=== PATIENT | male | born 1965 | race Caucasian/White ===

== ENCOUNTER 2016-05-18 03:15 | Emergency (ER) | payer MEDICAID ==
[2015-06-30 11:54] VITALS: BMI 32.8
[~2016-05-18 03:15] MED LIST: BACTRIM DS TABL1 TAB PO; GLUCOPHAGE500 MG PO
== END 2016-05-18 04:04 | disposition home or self-care (01) ==
LOC: D.ER 03:15
DX: T14.8 Other injury of unspecified body region (principal); W22.8XXA Striking against or struck by other objects, initial encounter; Y93.89 Activity, other specified; Y92.129 Unspecified place in nursing home as the place of occurrence of the external cause; S20.229A Contusion of unspecified back wall of thorax, initial encounter; S01.21XA Laceration without foreign body of nose, initial encounter; E11.9 Type 2 diabetes mellitus without complications

== ENCOUNTER → 2020-07-17 09:16 | Outpatient (CLI) | payer OTHER ==
[2020-03-14 10:39] VITALS: BMI 32.0
[~2020-07-17 09:16] MED LIST changes: +COREG 3.1253.125 MG PO; +ENTRESTO 24 MG1 EACH PO; +K-DUR20 MEQ PO; +LASIX40 MG PO
== END | disposition home or self-care (01) ==
LOC: D.HCCECHO 09:16
PROVIDERS: ATTEND Internal Medicine Cardiovascular Disease
DX: I51.7 Cardiomegaly (principal); I42.9 Cardiomyopathy, unspecified

== ENCOUNTER → 2020-07-17 18:50 | Outpatient (CLI) | payer OTHER ==
[2020-03-14 10:39] VITALS: BMI 32.0
[2020-07-17 19:41] LABS: ANION GAP 10.6 mmol/L (8-16); CALCIUM 8.6 mg/dL (8.5-10.1); CARBON DIOXIDE 31.6 mmol/L (21.0-32.0); CREATININE - SERUM 1.1 mg/dL (0.6-1.3); POTASSIUM - SERUM 4.2 mmol/L (3.5-5.1)
== END | disposition home or self-care (01) ==
LOC: D.LABREF 18:50
PROVIDERS: ATTEND Nurse Practitioner
DX: I42.9 Cardiomyopathy, unspecified (principal)